=== PATIENT | female | born 1935 | race Hispanic/Latino ===

== ENCOUNTER 2019-08-02 09:36 | Outpatient (RCR) | payer MEDICARE | END 2019-08-12 | disposition still patient (30) | LOC: WCC 09:36 | PROVIDERS: ATTEND Internal Medicine Infectious Disease | DX: E11.69 Type 2 diabetes mellitus with other specified complication (principal); E11.65 Type 2 diabetes mellitus with hyperglycemia; S71.102A Unspecified open wound, left thigh, initial encounter; I73.9 Peripheral vascular disease, unspecified; I87.2 Venous insufficiency (chronic) (peripheral); I10 Essential (primary) hypertension; E78.5 Hyperlipidemia, unspecified; E78.01 Familial hypercholesterolemia; Y92.538 Other ambulatory health services establishments as the place of occurrence of the external cause ==